=== PATIENT | male | born 1980 | race Hispanic/Latino ===

== ENCOUNTER 2019-02-26 08:02 | Emergency (ER) | payer SELFPAY ==
[2019-02-26] MEDS ORDERED: Fluorescein Opthalmic Strip ONE (08:16)
[2019-02-26] MEDS ORDERED: Sodium Chloride 0.9% 500 ML ONE (08:41)
== END 2019-02-26 09:30 | disposition home or self-care (01) ==
LOC: NAV ERS 08:02
DX: T15.01XA Foreign body in cornea, right eye, initial encounter (principal); I10 Essential (primary) hypertension; F17.210 Nicotine dependence, cigarettes, uncomplicated
CPT/HCPCS: 99283; J7050

== ENCOUNTER 2019-03-31 14:46 | Emergency (ER) | payer OTHER, SELFPAY | END 2019-03-31 15:11 | disposition home or self-care (01) | LOC: NAV ERS 14:46 | DX: G56.22 Lesion of ulnar nerve, left upper limb (principal); F17.210 Nicotine dependence, cigarettes, uncomplicated | CPT/HCPCS: 99283 ==

== ENCOUNTER 2020-01-08 12:49 | Emergency (ER) | payer OTHER ==
[2020-01-09 10:41] LABS: SARS-CoV-2 MS2 Positive; SARS-CoV-2 N Gene Negative; SARS-CoV-2 S Gene Negative; SARS-CoV-2 orf1ab Negative
== END 2020-01-08 14:35 | disposition home or self-care (01) ==
LOC: NAV ERS 12:49
DX: R50.9 Fever, unspecified (principal); R51 Headache; Z20.828 Contact with and (suspected) exposure to other viral communicable diseases; F17.210 Nicotine dependence, cigarettes, uncomplicated
CPT/HCPCS: 87081; 87430; 87635; 99283; U0003

== ENCOUNTER 2020-01-29 15:14 | Emergency (ER) | payer OTHER ==
[2020-01-30 11:18] LABS: SARS-CoV-2 MS2 Positive; SARS-CoV-2 N Gene Negative; SARS-CoV-2 S Gene Negative; SARS-CoV-2 orf1ab Negative
== END 2020-01-29 15:56 | disposition home or self-care (01) ==
LOC: NAV ERS 15:14
DX: Z20.828 Contact with and (suspected) exposure to other viral communicable diseases (principal); F17.210 Nicotine dependence, cigarettes, uncomplicated
CPT/HCPCS: 87635; 99283; U0003

== ENCOUNTER 2020-02-24 13:05 | Emergency (ER) | payer OTHER ==
[2020-02-25 15:08] LABS: SARS-CoV-2 MS2 Positive; SARS-CoV-2 N Gene Negative; SARS-CoV-2 S Gene Negative; SARS-CoV-2 orf1ab Negative
== END 2020-02-24 13:40 | disposition home or self-care (01) ==
LOC: NAV ERS 13:05
DX: Z20.828 Contact with and (suspected) exposure to other viral communicable diseases (principal); F17.210 Nicotine dependence, cigarettes, uncomplicated
CPT/HCPCS: 87635; 99283; U0003

== ENCOUNTER 2021-04-21 15:57 | Emergency (ER) | payer OTHER ==
[2021-04-22 23:09] LABS: SARS-CoV-2 PCR by NAA DETECTED (NotDetected)
== END 2021-04-21 17:00 ==
LOC: NAV ERS 15:57
DX: U07.1 COVID-19 (principal); F17.210 Nicotine dependence, cigarettes, uncomplicated
CPT/HCPCS: 99283; U0003; U0005